=== PATIENT | male | born 1985 | race Caucasian/White ===

== ENCOUNTER → 2018-07-14 | Outpatient (CLI) | payer SELFPAY | LOC: LAB 08:56 | DX: Z13.89 Encounter for screening for other disorder (principal); Z87.898 Personal history of other specified conditions ==

== ENCOUNTER → 2018-08-12 | Outpatient (CLI) | payer SELFPAY | LOC: LAB 12:37 | DX: Z13.89 Encounter for screening for other disorder (principal); Z87.898 Personal history of other specified conditions ==